=== PATIENT | female | born 1990 | race Caucasian/White ===

== ENCOUNTER 2018-07-26 09:07 | Inpatient (IN) ==
--- NOTE | 2018-07-26 10:00 | P.HPOB ---
History of Present Illness Primary Care Physician: MD Dr. Kesha Pride Chief Complaint: Contractions crampy pain History of Present Illness: Patient is 27-year-old white female G one P0 at 39 weeks presents complaining of contraction pain since late last night. She sees Dr. Rebolledo for care. She has a fetus in a breech presentation[ultrasound done at bedside confirms breech in a incomplete presentation], her NST is reactive and she is nicole irregularly Weeks Gestation:: 39 Para: 0 : 1 Review of Systems Constitutional: Denies anorexia, Denies body ache(s), Denies chills, Denies daytime sleepiness, Denies excessive sweating, Denies fatigue, Denies fever(s), Denies headache(s), Denies increased appetite, Denies lack of energy, Denies malaise, Denies night sweats, Denies weakness, Denies weight gain, Denies weight loss, Denies other Cardiovascular: Denies bluish discoloration of hand/feet, Denies chest pain, Denies chest pain at rest, Denies chest pain with activity, Denies excessive sweating, Denies fainting, Denies fast heart rate, Denies foot swelling, Denies generalized swelling, Denies irregular heart rhythm, Denies leg pain with activity, Denies leg sores, Denies leg swelling, Denies lightheadedness, Denies radiating jaw, neck or arm pain, Denies rapid, pounding, or irregular heartbeat , Denies shortness of breath, Denies shortness of breath with activity, Denies shortness of breath when lying down, Denies shortness of breath causing sudden awakening, Denies slow heart rate, Denies other Respiratory: Denies change in phlegm color, Denies chest congestion, Denies cough, Denies coughing up blood, Denies excessive phlegm production, Denies pain on inspiration, Denies pain with cough, Denies shortness of breath, Denies shortness of breath with activity, Denies snoring, Denies stridor, Denies wheezing, Denies other Gastrointestinal: Reports abdominal pain, Denies belching, Denies black, tarry stools, Denies bloating, Denies bright, red blood in stools, Denies change in bowel habits, Denies constant urge to pass stool, Denies change in stools, Denies coffee ground vomit, Denies constipation, Denies cramping, Denies difficulty swallowing, Denies excessive passing of gas, Denies feeling full early, Denies heartburn, Denies incontinent of stools, Denies loose stools, Denies nausea, Denies pain with swallowing, Denies vomiting, Denies vomiting blood, Denies other Genitourinary: Denies abnormal periods, Denies abnormal vaginal bleeding, Denies absent period, Denies bleeding between periods, Denies blood in urine, Denies difficulty starting urination, Denies difficulty urinating, Denies dribbling after urination, Denies frequent nighttime urination, Denies genital itching, Denies genital lesions, Denies heavy periods, Denies hot flashes, Denies light periods, Denies nipple discharge, Denies painful intercourse, Denies painful periods, Denies painful urination, Denies pelvic pain, Denies prolapse symptoms, Denies sexual problems, Denies side pain, Denies urinary incontinence, Denies urinary urgency, Denies vaginal discharge, Denies vaginal dryness, Denies vaginal odor, Denies vaginal itching, Denies other Musculoskeletal: Denies abnormal walking, Denies back pain, Denies body aches, Denies decreased muscle mass, Denies deformity, Denies joint pain, Denies joint swelling, Denies limited joint movement, Denies loss of height, Denies muscle cramps, Denies muscle weakness, Denies neck pain, Denies numbness, Denies radiating pain into limb, Denies stiffness, Denies tingling, Denies other Neurologic: Denies abnormal hearing, Denies abnormal movements, Denies abnormal speech, Denies abnormal walking, Denies behavioral changes, Denies burning sensations, Denies confusion, Denies dizziness, Denies fainting, Denies frequent falls, Denies headache(s), Denies lack of coordination, Denies localized weakness, Denies loss of vision, Denies memory loss, Denies numbness, Denies other visual disturbances, Denies radiating pain, Denies restless legs, Denies convulsions, Denies seizure-like activity, Denies sensory deficit, Denies tingling, Denies tingling/numbness/burning sensations, Denies tremor(s), Denies unsteadiness, Denies weakness, Denies other Hematologic/Lymphatic: Denies easy bleeding, Denies easy bruising, Denies enlarged lymph nodes, Denies other PMFSH - Social History I have reviewed the patient's Social History: Yes - Tobacco History Smoking Status: Never smoker - Alcohol History How Often Do You Have a Drink Containing Alcohol: Never - Substance Use History Substance History: No History of Abuse - Travel History History of Recent Travel: No Recent Travel in the [place] Within the Last 8 Weeks: No Recent Travel Out of the Country Within the Last 8 Weeks: No Medications and Allergies Allergies Allergy/AdvReac Type Severity Reaction Status Date / Time No Known Allergies Allergy Unverified 07/26/18 09:55 Exam Vital signs: Vital Signs 07/26/18 09:40 07/26/18 09:41 Temperature 98.0 F Pulse Rate 94 H 94 H Respiratory Rate 18 Blood Pressure 133/87 Narrative: GENERAL: Well-nourished, well-developed patient. SKIN: Warm and dry. HEAD: Normocephalic and atraumatic. EYES: No scleral icterus. No injection or drainage. ENT: No nasal drainage noted. Mucous membranes pink. Airway patent. NECK: Supple, trachea midline. No JVD. CARDIOVASCULAR: Regular rate and rhythm without murmurs, gallops, or rubs. RESPIRATORY: Breath sounds equal bilaterally. No accessory muscle use. BREASTS: Bilateral exam showed no masses , no retractions, no nipple discharge. ABDOMEN/GI: Abdomen soft, non-tender, bowel sounds present, no rebound, no guarding Gravid to [-39] weeks size Fundal Height: [38-] GENITOURINARY: External Genitalia: intact and normal in appearance BUS glands: [-] Cervix: [post-] Dilatation: [2-3-] Effacement: [-50] Station: [-3] Presentation: [breech -] Membranes: [intact ] Uterine Contractions: [2 3-5 min-] FHT's: Category: [1-] Baseline: [133-] Reactive: [R-] Variability: [mod-] Decels: [0-] EXTREMITIES: No cyanosis or edema. BACK: Nontender without obvious deformity. No CVA tenderness. NEUROLOGICAL: Awake and alert. Motor and sensory grossly within normal limits. Five out of 5 muscle strength in all muscle groups. Normal speech. Caprini VTE Risk Assessment Caprini VTE Risk Assessment: No/Low Risk (score <= 1) Caprini Risk Assessment Model: Point Value = 1 Point Value = 2 Point Value = 3 Point Value = 5 Age 41-60 Minor surgery BMI > 25 kg/m2 Swollen legs Varicose veins or History of unexplained or recurrent spontaneous Oral contraceptives or hormone replacement Sepsis (< 1 month) Serious lung disease, including pneumonia (< 1 month) Abnormal pulmonary function Acute myocardial infarction Congestive heart failure (< 1 month) History of inflammatory bowel disease Medical patient at bed rest Age 61-74 Arthroscopic surgery Major open surgery (> 45 min) Laparoscopic surgery (> 45 min) Malignancy Confined to bed (> 72 hours) Immobilizing plaster cast Central venous access Age >= 75 History of VTE Family history of VTE Factor V Leiden Prothrombin [id number] Lupus anticoagulant Anticardiolipin antibodies Elevated serum homocysteine Heparin-induced thrombocytopenia Other congenital or acquired thrombophilia Stroke (< 1 month) Elective arthroplasty Hip, pelvis, or leg fracture Acute spinal cord injury (< 1 month) Prophylaxis Regimen: Total Risk Factor Score Risk Level Prophylaxis Regimen 0-1 Low Early ambulation 2 Moderate Order ONE of the following: *Sequential Compression Device (SCD) *Heparin 5000 units SQ BID 3-4 Higher Order ONE of the following medications: *Heparin 5000 units SQ TID *Enoxaparin/Lovenox 40 mg SQ daily (WT < 150 kg, CrCl > 30 mL/min) *Enoxaparin/Lovenox 30 mg SQ daily (WT < 150 kg, CrCl > 10-29 mL/min) *Enoxaparin/Lovenox 30 mg SQ BID (WT < 150 kg, CrCl > 30 mL/min) AND/OR *Sequential Compression Device (SCD) 5 or more Highest Order ONE of the following medications: *Heparin 5000 units SQ TID (Preferred with Epidurals) *Enoxaparin/Lovenox 40 mg SQ daily (WT < 150 kg, CrCl > 30 mL/min) *Enoxaparin/Lovenox 30 mg SQ daily (WT < 150 kg, CrCl > 10-29 mL/min) *Enoxaparin/Lovenox 30 mg SQ BID (WT < 150 kg, CrCl > 30 mL/min) AND *Sequential Compression Device (SCD) Assessment and Plan - Diagnosis (1) 39 weeks gestation of Code(s): Z3A.39 - 39 weeks gestation of Status: Acute (2) Uterine contractions during Code(s): O62.2 - Other uterine inertia Status: Acute (3) Breech presentation Code(s): O32.1XX0 - Maternal care for breech presentation, not applicable or unspecified Status: Acute - Plan This primiparous patient is 39 weeks presents in early labor with irregular contractions dilated 23/50% and is incomplete breech presentation with small parts palpable the cervix. NST is reactive she is nicole every 3-5 minutes Plan is admission to the hospital notified her OB provider and the patient will be delivered by section due to breech presentation in labor
[2018-07-26] MEDS ORDERED: Citric Acid/Sodium Citrate Liq 30 ML UDC PO SCH (10:15)
[2018-07-26 10:22] LABS: Baso # (Auto) 0.1 th/mm3 (0.0-0.2); Baso % (Auto) 0.7 % (0.0-2.0); Eos # (Auto) 0.1 th/mm3 (0.0-0.4); Eos % (Auto) 0.9 % (0.0-4.0); Hematocrit 39.8 % (35.0-46.0); Hemoglobin 13.1 gm/dL (11.6-15.3); Lymph # (Auto) 1.8 th/mm3 (1.0-4.8); Lymph % (Auto) 18.4 % (9.0-44.0); Mean Corpuscular HGB Conc 32.9 % (32.0-36.0); Mean Corpuscular Volume 85.2 fL (80.0-100.0); Mono # (Auto) 0.6 th/mm3 (0.0-0.9); Neut # (Auto) 7.4 th/mm3 (1.8-7.7); Platelet Count 196 th/mm3 (150-450); Red Blood Count 4.68 mil/mm3 (4.00-5.30); Red Cell Distribution Width 15.2 % (11.6-17.2); White Blood Count 9.9 th/mm3 (4.0-11.0)
[2018-07-26] MEDS ORDERED: Morphine Sulfate PF Inj 5 MG/10 ML Ampul ONE (10:25)
[2018-07-26 10:32] LABS: Bilirubin,Urine Negative (Negative); Clarity,Urine Hazy (Clear); Color,Urine Yellow (Yellw/Straw); Glucose,Urine (UA) Negative (Negative); Leukocyte Esterase,Urine Negative (Negative); Mucus,Urine Few /lpf (Occasional); Nitrite,Urine Negative (Negative); Specific Gravity,Urine 1.011 (1.002-1.035); Squamous Epithelial Cell,Urine 4 /hpf (0-5)
[2018-07-26 10:36] LABS: Amphetamine Screen,Urine Neg (Neg); Barbiturate Screen,Urine Neg (Neg); Cannabinoid Screen,Urine Neg (Neg); Cocaine Screen,Urine Neg (Neg)
[2018-07-26 10:41] LABS: Opiate Screen,Urine Neg (Neg)
[2018-07-26] MEDS ORDERED: Phenylephrine/NS 1000 MCG/10ML Syringe IV.PUSH ONE (11:00)
[2018-07-26] MEDS ORDERED: ceFAZolin Inj 2,000 MG in Sodium Chlor 0.9% Inj 80 ML IV.SIG SCH (11:00)
[2018-07-26] MEDS ORDERED: Oxytocin 30 Units/500ml Premix 30 UNITS/500 ML BAG IV.SIG ONE (11:40)
[2018-07-26] MEDS ORDERED: Acetaminophen 325 MG Tablet PO PRN (11:40)
[2018-07-26] MEDS ORDERED: Simethicone 80 MG Chew Tablet PO PRN (11:40)
--- NOTE | 2018-07-26 11:43 | P.OBDELI ---
Procedure Note Performed by: Madelin Rebolledo MD Procedure: Primary Low Transverse Section Indication for Delivery: malposition (footling breech) Informed Consent Obtained: For anesthesia, For procedure Confirmed Correct: Patient, Procedure, Site Anesthesia: Spinal Medication Prior to Procedure: As documented in eMAR Monitoring During Procedure: Blood pressure monitoring, laboratory monitor, Pulse oximetry Urinary Catheter: Inserted using sterile technique, To dependent drainage Sterile Preparation: Duraprep, In usual fashion, With drapes to expose affected area Position: Supine with wedge to right side - Operative Features Skin Incision: Pfannenstiel Uterine Incision: Low transverse w/knife / blunt ext Membranes Ruptured: Artificially, Appearance of fluid (clear) Presentation: Breech (footling) Status of Infant: Viable, Nursery present Placenta Delivered: Intact Medications: Antibiotics (ancef 2g IV preop) Estimated blood loss (mL): 300 Procedure Tolerated: Well Maternal Condition: Stable Baby Condition: Stable Procedure in Detail: see dictated op note - : Female Infant Female A Infant Delivery Date: 07/26/18 Delivery Time: 11:03 Weight: 3.515 kg Delivery of : Umbilical cord (body cord delivered through; loose) score (1 min): 8 score (5 min): 9
--- NOTE | 2018-07-26 11:58 | MP ---
cc: Madelin Rebolledo MD DATE OF OPERATION: 07/26/2018 PREOPERATIVE DIAGNOSES: 1. Swain intrauterine in footling breech presentation at 39 weeks and 4 days. 2. Active labor. POSTOPERATIVE DIAGNOSES: 1. Swain intrauterine in footling breech presentation at 39 weeks and 4 days. 2. Active labor. 3. Postoperative day number zero. INDICATIONS: Taylor Walton is a 27-year-old, 1, now para 1-0-0-1, who came into the labor and delivery triage area for complaints of regular contractions. She was found to be 3 cm dilated, intact, but evaluating physician suspected not vertex presentation and bedside ultrasound confirmed that fetus was in footling breech presentation. As such, it was decided a section was indicated and the patient was taken for procedure. PROCEDURE PERFORMED: Primary low transverse delivery. SURGEON: Madelin Rebolledo MD. ANESTHESIA: Spinal. ESTIMATED BLOOD LOSS: 300 mL. IV FLUID REPLACEMENT: 1500 mL. URINE OUTPUT: Approximately 150 mL clear urine drained in the Velarde bag at the end of the procedure. PROPHYLAXIS: Ancef 2 grams was given preoperatively. SCDs were on and functioning throughout the entire case. COMPLICATIONS: None. COUNTS: Sponge, lap, instrument, and needle counts were correct x 2 at the conclusion of the procedure. SPECIMEN: None. INTRAOPERATIVE FINDINGS: Included vigorous viable female weighing 7 pounds 12 ounces in footling breech presentation with a body cord that was delivered through. Clear amniotic fluid. Normal-appearing uterus, bilateral ovaries, and fallopian tubes. PROCEDURE IN DETAIL: After reviewing the informed consent, the patient was taken to the operating suite, where a timeout was performed to identify the patient, planned procedure, any known allergies to drugs or drug products. The patient was then placed in sitting up position on the operative table and spinal anesthesia was administered without difficulty and found to be adequate. The patient was then laid in dorsal supine position with a bump under her right side and abdomen and perineum were prepped and draped in normal sterile fashion. Velarde catheter was placed using sterile technique. Attention was turned abdominally, where a Pfannenstiel type skin incision was made with a scalpel, carried down to the underlying layer of fascia with the Bovie. The fascia was incised in the midline. Incision was extended laterally with sharp dissection using Rawls scissors. Superior aspect of the fascial incision was then elevated with Caridad clamps. Rectus muscles were dissected off sharply with Rawls scissors. Kochers were then moved inferiorly to the fascial incision edge and rectus muscles were again dissected off sharply with Rawls scissors. Rectus muscles were then in the midline. Peritoneum was identified and entered bluntly with surgeon's index finger. Incision was extended with good visualization of intra-abdominal contents. Bladder blade was placed. Bladder flap was not made. Low transverse uterine incision was made with a scalpel. Amniotic sac was ruptured and both feet were immediately found to be the presenting part. Feet were elevated out through the incision as was the infant's rump and torso. was wrapped in a sterile moist blue towel and was turned to maternal right for delivery of the left arm and shoulder, which was swept across the 's chest. The was then turned to the maternal left and the right arm was swept across the chest for delivery. Infant's head was then flexed and delivered. Infant was immediately crying and vigorous upon delivery. A body cord had been delivered through, this was then reduced. Delayed cord clamping of 45 seconds was performed. was then handed off to the awaiting nursery staff. Placenta was delivered using gentle cord traction and fundal massage. Uterus was then exteriorized, cleared of all clots and debris with sterile moist lap sponges. The hysterotomy was repaired in a double-layer, first in a running locking layer, then an imbricating layer. Posterior cul-de-sac was irrigated with warm sterile saline. Uterus was returned to the abdomen. Additional irrigation with suction was performed with excellent hemostasis noted. A layer of Interceed was placed over the repaired hysterotomy to act as an adhesion barrier. The peritoneum was closed in a running fashion with 2-0 chromic. The fascia was closed in a running layer with #1 Vicryl. Subcutaneous tissue was irrigated with warm sterile saline and hemostasis was ensured with the Bovie. The skin was then cleaned, dried, and closed in a subcuticular fashion with 3-0 Monocryl. Steri-Strips were placed as was a standard dressing. The patient tolerated the procedure well without complications. Procedure concluded at this point. DISPOSITION: The patient's estimated length of stay is 2-3 postoperative days. is nursery status. MD Darnell Kelly , 11:41 AM , 11:48 AM [facility]
[2018-07-26] MEDS ORDERED: Naloxone Inj 0.4 MG/ML Vial IV.PUSH PRN (13:54)
[2018-07-26] MEDS ORDERED: Oxytocin 30 Units/500ml Premix 30 UNITS/500 ML BAG IV.SIG PRN (16:40)
[2018-07-26] MEDS ORDERED: Zolpidem Tartrate 5 MG Tablet PO PRN (21:00)
[2018-07-27 05:54] LABS: Baso % (Auto) 0.3 % (0.0-2.0); Eos % (Auto) 0.2 % (0.0-4.0); Hematocrit 29.4 % (35.0-46.0); Lymph # (Auto) 2.6 th/mm3 (1.0-4.8); Mean Corpuscular Hemoglobin 28.3 pg (27.0-34.0); Mean Corpuscular Volume 83.4 fL (80.0-100.0); Mean Platelet Volume 8.2 fL (7.0-11.0); Mono % (Auto) 7.5 % (0.0-8.0); Platelet Count 197 th/mm3 (150-450); Red Blood Count 3.52 mil/mm3 (4.00-5.30); Red Cell Distribution Width 14.8 % (11.6-17.2); White Blood Count 13.7 th/mm3 (4.0-11.0)
--- NOTE | 2018-07-27 07:01 | P.PNOB ---
Subjective Post op day: 1 Interval history: doing well, ambulating, already voided. Baby is doing well Objective Vital Signs/I&O: Vital Signs 07/26/18 09:40 07/26/18 09:41 07/26/18 09:55 Temperature 98.0 F Pulse Rate 94 H 94 H 98 H Respiratory Rate 18 Blood Pressure 133/87 07/26/18 10:20 07/26/18 10:26 07/26/18 11:40 Temperature Pulse Rate 93 H 89 Respiratory Rate Blood Pressure 125/84 114/60 07/26/18 11:41 07/26/18 12:00 07/26/18 12:15 Temperature 98.0 F Pulse Rate 99 H 77 76 Respiratory Rate 20 19 15 Blood Pressure 114/67 121/75 07/26/18 12:30 07/26/18 13:21 07/26/18 20:00 Temperature 97.7 F 97.5 F L 98.3 F Pulse Rate 72 70 69 Respiratory Rate 18 16 18 Blood Pressure 121/78 121/75 109/57 L 07/26/18 23:49 07/27/18 05:00 Temperature 98.3 F 98.3 F Pulse Rate 102 H 80 Respiratory Rate 18 18 Blood Pressure 107/61 115/60 Intake & Output 07/26/18 07/26/18 07/27/18 06:59 18:59 06:59 Weight 83 kg Result Diagrams: 07/27/18 05:08 Objective Remarks: GENERAL: Well-nourished, well-developed patient. CARDIOVASCULAR: Regular rate and rhythm without murmurs, gallops, or rubs. RESPIRATORY: Breath sounds equal bilaterally. No accessory muscle use. ABDOMEN/GI: Abdomen soft, non-tender, bowel sounds present. Incision: Clean, dry and intact. Pressure dressing in place, partially removed to inspect incision, no active bleeding Fundus: Firm, non-tender at umbilicus. GENITOURINARY: Light to moderate bleeding. EXTREMITIES: No cyanosis or edema, non-tender, without signs of DVT. Medications and IVs: Active Medications Acetaminophen (Tylenol) 650 mg PO Q6H PRN PRN Reason: PAIN SCALE 1 TO 2 Diphenhydramine HCl (Benadryl) 50 mg PO Q6H PRN PRN Reason: MILD TO MODERATE ITCHING Stop: 07/27/18 13:53 Diphenhydramine HCl (Benadryl Inj) 25 mg IV.PUSH Q6H PRN PRN Reason: MILD TO MODERATE ITCHING Stop: 07/27/18 13:53 Diphtheria/Pertussis/Tetanus Vacc (Boostrix Vaccine Inj) 0.5 ml IM .ONCE ONE Stop: 07/27/18 16:01 Lactated Ringer's (Lr 1000 Ml Inj) 1,000 mls @ 100 mls/hr IV.CONT .Q10H LESLY Stop: 07/27/18 12:39 Last Admin: 07/27/18 02:39 Dose: Not Given Oxytocin (Pitocin 30 Units/Ns 500 Ml Premix) 30 units in 500 mls @ 100 mls/hr IV.SIG UNSCH PRN PRN Reason: Heavy bleeding Ibuprofen (Motrin) 800 mg PO Q8H PRN PRN Reason: cramping Last Admin: 07/27/18 02:41 Dose: 800 mg Ketorolac Tromethamine (Toradol Inj) 30 mg IM Q6H PRN PRN Reason: SEE LABEL COMMENTS Stop: 07/31/18 11:39 Measles/Mumps/Rubella Vaccine Live (M-M-R Ii Vaccine Inj) 0.5 ml SQ .ONCE ONE Stop: 07/27/18 16:01 Miscellaneous Information ([facility]) 1 each OTHER UNSCH PRN PRN Reason: SEE LABEL COMMENTS Stop: 07/27/18 13:53 Miscellaneous Information ([facility]) 1 each OTHER UNSCH PRN PRN Reason: SEE LABEL COMMENTS Stop: 07/27/18 13:53 Naloxone HCl (Narcan Inj) 0.4 mg IV.PUSH UNSCH PRN PRN Reason: SEE LABEL COMMENTS Stop: 07/27/18 13:53 Ondansetron HCl (Zofran Inj) 4 mg IV.PUSH Q6H PRN PRN Reason: NAUSEA OR VOMITING Oxycodone/Acetaminophen (Percocet 5/325 Mg) 1 tab PO Q4H PRN PRN Reason: PAIN SCALE 3 TO 5 Last Admin: 07/27/18 02:42 Dose: 1 tab Oxycodone/Acetaminophen (Percocet 5/325 Mg) 2 tab PO Q4H PRN PRN Reason: PAIN SCALE 6 TO 10 Senna/Docusate Sodium (Bhavana-Colace) 2 tab PO Q12H PRN PRN Reason: CONSTIPATION Simethicone (Mylicon Chew) 80 mg PO QID PRN PRN Reason: FLATULENCE Sodium Chloride (Ns Flush) 2 ml IV.FLUSH BID LESLY Last Admin: 07/26/18 21:38 Dose: Not Given Sodium Chloride (Ns Flush) 2 ml IV.FLUSH PRN PRN PRN Reason: FLUSH AFTER USING IV ACCESS Zolpidem Tartrate (Ambien) 5 mg PO HS PRN PRN Reason: INSOMNIA Assessment and Plan - Diagnosis (1) delivery delivered Code(s): O82 - Encounter for delivery without indication Status: Acute (2) Breech presentation Code(s): O32.1XX0 - Maternal care for breech presentation, not applicable or unspecified Status: Acute - Plan POD 1 s/p primary cd for breech/labor encourage ambulation, shower then remove dressing, support Interested in going home tomorrow dispo home ppd 2-3
[2018-07-27] MEDS: Senna/Docusate Sodium 8.6/50 MG Tablet PO PRN ×2 (08:47→22:57)
[2018-07-27] MEDS ORDERED: Diphtheria/Tetanus/Pertussis Vaccine Inj 0.5 ML Syringe IM ONE (16:00)
[2018-07-27] MEDS ORDERED: Measles/Mumps/Rubella Vaccine Inj 0.5 ML Vial SQ ONE (16:00)
--- NOTE | 2018-07-28 08:27 | P.PNOB ---
Subjective Post op day: 2 Interval history: doing well, +BM, wants to go home later today if possible Objective Vital Signs/I&O: Vital Signs 07/27/18 20:00 Temperature 97.9 F Pulse Rate 85 Respiratory Rate 18 Blood Pressure 115/66 Result Diagrams: 07/27/18 05:08 Objective Remarks: GENERAL: Well-nourished, well-developed patient. CARDIOVASCULAR: Regular rate and rhythm without murmurs, gallops, or rubs. RESPIRATORY: Breath sounds equal bilaterally. No accessory muscle use. ABDOMEN/GI: Abdomen soft, non-tender, bowel sounds present. Incision: Clean, dry and intact. Fundus: Firm, non-tender at umbilicus. GENITOURINARY: Light to moderate bleeding. EXTREMITIES: No cyanosis or edema, non-tender, without signs of DVT. Medications and IVs: Active Medications Acetaminophen (Tylenol) 650 mg PO Q6H PRN PRN Reason: PAIN SCALE 1 TO 2 Oxytocin (Pitocin 30 Units/Ns 500 Ml Premix) 30 units in 500 mls @ 100 mls/hr IV.SIG UNSCH PRN PRN Reason: Heavy bleeding Ibuprofen (Motrin) 800 mg PO Q8H PRN PRN Reason: cramping Last Admin: 07/28/18 02:50 Dose: 800 mg Ketorolac Tromethamine (Toradol Inj) 30 mg IM Q6H PRN PRN Reason: SEE LABEL COMMENTS Stop: 07/31/18 11:39 Ondansetron HCl (Zofran Inj) 4 mg IV.PUSH Q6H PRN PRN Reason: NAUSEA OR VOMITING Last Admin: 07/27/18 10:35 Dose: 4 mg Oxycodone/Acetaminophen (Percocet 5/325 Mg) 1 tab PO Q4H PRN PRN Reason: PAIN SCALE 3 TO 5 Last Admin: 07/28/18 02:52 Dose: 1 tab Oxycodone/Acetaminophen (Percocet 5/325 Mg) 2 tab PO Q4H PRN PRN Reason: PAIN SCALE 6 TO 10 Last Admin: 07/27/18 10:34 Dose: 2 tab Senna/Docusate Sodium (Bhavana-Colace) 2 tab PO Q12H PRN PRN Reason: CONSTIPATION Last Admin: 07/27/18 22:57 Dose: 2 tab Simethicone (Mylicon Chew) 80 mg PO QID PRN PRN Reason: FLATULENCE Last Admin: 07/27/18 18:44 Dose: 80 mg Sodium Chloride (Ns Flush) 2 ml IV.FLUSH BID LESLY Last Admin: 07/27/18 22:57 Dose: Not Given Sodium Chloride (Ns Flush) 2 ml IV.FLUSH PRN PRN PRN Reason: FLUSH AFTER USING IV ACCESS Zolpidem Tartrate (Ambien) 5 mg PO HS PRN PRN Reason: INSOMNIA Assessment and Plan - Diagnosis (1) delivery delivered Code(s): O82 - Encounter for delivery without indication Status: Acute (2) Breech presentation Code(s): O32.1XX0 - Maternal care for breech presentation, not applicable or unspecified Status: Acute - Plan POD 2 s/p primary cd for breech/labor encourage ambulation, shower , support Interested in going home today dispo home ppd 2-3 Discharge Planning: routine - Attending Attestation pt seen by me
[2018-07-28 08:42] VITALS: BP 102/70
[2018-07-28 08:43] VITALS: PULSE 98; RESP 16; TEMP 97.6
[2018-07-28] MEDS: Senna/Docusate Sodium 8.6/50 MG Tablet PO PRN (11:03)
== END 2018-07-28 12:06 | disposition home or self-care (01) ==
LOC: HOBED 09:07 → H2E 09:54 → H1EA 12:49
PROVIDERS: ADMIT Obstetrics & Gynecology; ATTEND Obstetrics & Gynecology